=== PATIENT | female | born 1945 | race Caucasian/White ===

== ENCOUNTER 2022-01-06 10:07 | Outpatient (CLI) | payer MEDICARE | END 2022-01-06 10:08 | disposition home or self-care (01) | LOC: CSHMAMMO 10:07 | PROVIDERS: ATTEND Family Medicine | DX: Z12.31 Encounter for screening mammogram for malignant neoplasm of breast (principal) | CPT/HCPCS: 77063; 77067 ==

== ENCOUNTER 2022-06-22 09:29 | Outpatient (CLI) | payer MEDICARE | END 2022-06-22 09:30 | disposition home or self-care (01) | LOC: CSHULT 09:29 | PROVIDERS: ATTEND Family Medicine | DX: R10.13 Epigastric pain (principal) | CPT/HCPCS: 76700; 76856 ==